=== PATIENT | female | born 1945 | race Caucasian/White ===

== ENCOUNTER 2020-12-19 11:34 | Emergency (ER) | payer OTHER ==
[2020-12-19] MEDS ORDERED: Amoxicillin/Potassium Clav 875 MG TAB ONE (12:00)
[2020-12-19] MEDS ORDERED: Acetaminophen 500 MG TAB ONE (12:00)
[2020-12-19] MEDS ORDERED: traMADol HCl 50 MG TAB ONE (12:00)
== END 2020-12-19 12:12 | disposition home or self-care (01) ==
LOC: MADERS 11:34
DX: K02.9 Dental caries, unspecified (principal); K08.89 Other specified disorders of teeth and supporting structures; J45.909 Unspecified asthma, uncomplicated; I34.1 Nonrheumatic mitral (valve) prolapse
CPT/HCPCS: 99282

== ENCOUNTER 2020-12-27 14:12 | Outpatient (CLI) | payer OTHER | END 2020-12-27 14:13 | disposition home or self-care (01) | LOC: MADRAD 14:12 | PROVIDERS: ATTEND Nurse Practitioner Family | DX: R05.9 Cough, unspecified (principal); J45.901 Unspecified asthma with (acute) exacerbation | CPT/HCPCS: 71046 ==

== ENCOUNTER 2023-02-10 09:46 | Emergency (ER) | payer OTHER ==
[2023-02-10] MEDS ORDERED: diphenhydrAMINE 25 MG CAP ONE ×2 (10:03→11:25)
[2023-02-10] MEDS ORDERED: Acetaminophen 500 MG TAB ONE (11:25)
== END 2023-02-10 12:30 | disposition home or self-care (01) ==
LOC: MADERS 09:46
DX: T78.40XA Allergy, unspecified, initial encounter (principal); E03.9 Hypothyroidism, unspecified; E78.00 Pure hypercholesterolemia, unspecified; I10 Essential (primary) hypertension; Z79.899 Other long term (current) drug therapy; Z79.82 Long term (current) use of aspirin
CPT/HCPCS: 99283

== ENCOUNTER 2023-12-06 11:10 | Outpatient (CLI) | payer OTHER | END 2023-12-06 11:11 | disposition home or self-care (01) | LOC: MADLAB 11:10 | PROVIDERS: ATTEND Internal Medicine Cardiovascular Disease | DX: I50.9 Heart failure, unspecified (principal); I25.2 Old myocardial infarction | CPT/HCPCS: 71046 ==